=== PATIENT | female | born 1960 | race Caucasian/White ===

== ENCOUNTER 2020-04-20 10:14 | Day surgery (SDC) | payer MEDICARE, MEDICAID ==
[~2020-04-20] VITALS: Ht 165.1 cm; Wt 95.4 kg
[2020-04-20] VITALS (11 sets, daily range): BP systolic 120–147; BP diastolic 45–78
[2020-04-20] MEDS ORDERED: diphenhydrAMINE 25mg capsule PO PRN (10:40)
[2020-04-20] MEDS ORDERED: normal saline 1,000 ML IV SCH (10:40)
[2020-04-20] MEDS ORDERED: nitroGLYCERIN 0.4mg SUBLingual tab SL PRN (10:40)
[2020-04-20] MEDS ORDERED: LORazepam 0.5 MG tablet PO PRN (10:40)
[2020-04-20] MEDS ORDERED: ALBU90AE INH (11:28)
[2020-04-20] MEDS ORDERED: LOSA25TA96 PO ×2 (11:28)
[2020-04-20] MEDS ORDERED: PRAS10TA6 PO (11:28)
[2020-04-20] MEDS ORDERED: HYDR-4353 PO (11:28)
[2020-04-20] MEDS ORDERED: BUPR100T13 PO (11:28)
[2020-04-20] MEDS ORDERED: TRAZ-256 PO (11:28)
[2020-04-20] MEDS ORDERED: MAGN250T11 PO (11:28)
[2020-04-20] MEDS ORDERED: CHOL400T8 PO (11:28)
[2020-04-20] MEDS ORDERED: METO-395 PO (11:28)
[2020-04-20] MEDS ORDERED: IRON-21 PO (11:28)
[2020-04-20] MEDS ORDERED: ROPI0.252 PO (11:28)
[2020-04-20] MEDS ORDERED: ASCO500C6 PO (11:28)
[2020-04-20] MEDS ORDERED: UMEC1DIS (11:28)
[2020-04-20] MEDS ORDERED: OMEP40CA13 PO (11:28)
[2020-04-20] MEDS ORDERED: AMLO2.5T2 PO (11:28)
[2020-04-20] MEDS ORDERED: fentaNYL/PF 50MCG/1 ML 2ML syringe ONE (11:40)
[2020-04-20] MEDS ORDERED: midazolam 2 mg/2 ml injection ONE ×2 (11:40→12:04)
[2020-04-20] MEDS ORDERED: iohexol 350MG/ML 100ml bottle IV ONE (11:40)
[2020-04-20] MEDS ORDERED: LIDOcaine 1% (10mg/ml)w/preservative injection 20ml MDV ONE (11:40)
[2020-04-20] MEDS ORDERED: iohexol 350 MG/ML 50ML vial IV ONE (11:40)
[2020-04-20] MEDS ORDERED: heparin 1,000 UNITS/NS 500ml 500 ML ONE (11:40)
[2020-04-20] MEDS ORDERED: ondansetron/PF 4mg/2ml inj IV PRN (12:55)
[2020-04-20] MEDS ORDERED: OXAZEpam 15mg capsule PO PRN (12:55)
[2020-04-20] MEDS ORDERED: proCHLORperazine 10 MG/2 ml inj IV PRN (12:55)
[2020-04-20] MEDS ORDERED: HYDROcodone/acetaminophen 10/325mg tab PO PRN (12:55)
[2020-04-20] MEDS ORDERED: HYDROcodone/acetaminophen 5mg/325mg tablet PO PRN (12:55)
== END 2020-04-20 18:20 | disposition home or self-care (01) ==
LOC: SSTAY O 10:14
PROVIDERS: ATTEND Internal Medicine Cardiovascular Disease
DX: R94.39 Abnormal result of other cardiovascular function study (principal); T82.855A Stenosis of coronary artery stent, initial encounter; I25.10 Atherosclerotic heart disease of native coronary artery without angina pectoris; F17.210 Nicotine dependence, cigarettes, uncomplicated; I10 Essential (primary) hypertension; E78.5 Hyperlipidemia, unspecified; F32.9 Major depressive disorder, single episode, unspecified; J44.9 Chronic obstructive pulmonary disease, unspecified; Z95.5 Presence of coronary angioplasty implant and graft; Y83.8 Other surgical procedures as the cause of abnormal reaction of the patient, or of later complication, without mention of misadventure at the time of the procedure; Y92.89 Other specified places as the place of occurrence of the external cause
CPT/HCPCS: 93005; 93458; 99152; 99153; C1760; C1769; J1644; J2001; J2250; J3010; J7030; Q0163; Q9967